=== PATIENT | male | born 1980 | race Caucasian/White ===

== ENCOUNTER → 2017-11-12 11:15 | Outpatient (CLI) | payer MEDICAID, SELFPAY ==
[2017-11-12 12:20] LABS: Basophils # 0.1 K/mm3 (0-0.2); Basophils % 1.2 % (0.1-2.0); Eosinophils # 0.7 K/mm3 (0.0-0.4); Eosinophils % 10.1 % (0.1-12.0); Lymphocytes # 1.9 K/mm3 (0.7-4.5); Lymphocytes % 27.8 K/mm3 (10-50); Mean Corpuscular HGB Conc 32.7 g/dL (31.8-35.4); Mean Corpuscular Hemoglobin 30.9 pg (27.0-31.2); Mean Corpuscular Volume 94.5 fl (80-94); Mean Platelet Volume 8.1 fl (7.4-10.4); Monocytes # 0.5 K/mm3 (0.1-1.0); Monocytes % 7.1 % (1.7-9.3); Neutrophils # 3.7 K/mm3 (1.8-7.8); Neutrophils % 53.7 % (37.0-80.0); Platelet Count 333 K/mm3 (142-424); Red Blood Count 4.55 M/mm3 (4.60-6.20); Red Cell Distribution Width 12.5 % (11.5-17.5); White Blood Count 6.9 K/mm3 (4.8-10.8)
[2017-11-12 13:17] LABS: Alanine Aminotransferase 23 U/L (12-78); Albumin Level 4.8 gm/dL (3.4-5.0); Albumin/Globulin Ratio 1.5 (1.1-1.8); Alkaline Phosphatase 71 U/L (46-116); Anion Gap 12.1 mEq/L (5-15); Aspartate Amino Transferase 13 U/L (15-37); Bilirubin,Total 0.3 mg/dL (0.2-1.0); Blood Urea Nitrogen 17 mg/dL (7-18); Calcium 9.1 mg/dL (8.5-10.1); Carbon Dioxide 29 mmol/L (21.0-32.0); Chloride 102 mmol/L (98-107); Chol/HDL Ratio 3.7 (1-3.5); Cholesterol 195 mg/dL (140-200); Creatinine,Serum 0.73 mg/dL (0.70-1.30); Estimated Glomerular Filt Rate 121 ml/min (>60); Free Thyroxine Index 2.9 ug/dL (5.93-13.13); GFR (African American) 146 ML/MIN (>60); Globulin 3.3 gm/dl (1.3-3.2); Glucose 101 mg/dL (74-106); HDL Cholesterol 53 mg/dL (27-67); LDL Cholesterol 118 mg/dL (0-130); Potassium 5.1 mmoL/L (3.5-5.1); Sodium 138 mmol/L (136-145); T4 (Thyroxine) 9.5 ug/dl (4.7-13.3); Thyroid Stimulating Hormone 0.92 uIU/ml (0.358-3.740); Total Protein,Serum 8.1 gm/dL (6.4-8.2); Triglycerides 118 mg/dL (30-200); Triiodothryronine (T3) Uptake 31 % (31-39); VLDL Cholesterol 24 mg/dL (0-40)
[2017-11-12 13:48] LABS: Hemoglobin A1C 5.1 % (0.0-7.0)
[2017-11-14 06:37] LABS: Vitamin B12 305 pg/mL (232-1245)
== END ==
PROVIDERS: PCP Nurse Practitioner Family; Visit Provider Nurse Practitioner Family
DX: R20.2 Paresthesia of skin (principal); R63.1 Polydipsia; I10 Essential (primary) hypertension; E01.0 Iodine-deficiency related diffuse (endemic) goiter
CPT/HCPCS: 36415; 80053; 80061; 82607; 83036; 84436; 84443; 84479; 85025

== ENCOUNTER → 2019-01-10 13:47 | Outpatient (CLI) | payer MEDICAID, SELFPAY | PROVIDERS: PCP Nurse Practitioner Family; Visit Provider Nurse Practitioner Family | DX: R06.02 Shortness of breath (principal); R42 Dizziness and giddiness | CPT/HCPCS: 93306 ==

== ENCOUNTER → 2019-11-14 14:59 | Outpatient (CLI) | payer OTHER, SELFPAY ==
[2019-11-14 15:42] LABS: Basophils # 0.1 K/mm3 (0-0.2); Eosinophils # 0.6 K/mm3 (0.0-0.4); Eosinophils % 6.1 % (0.1-12.0); Hematocrit 49.2 % (42.0-52.0); Hemoglobin 16.4 g/dL (14.1-18.0); Lymphocytes % 20.7 % (10-50); Mean Corpuscular HGB Conc 33.4 g/dL (31.8-35.4); Mean Corpuscular Hemoglobin 32.3 pg (27.0-31.2); Mean Corpuscular Volume 96.6 fl (80-94); Mean Platelet Volume 8.8 fl (7.4-10.4); Monocytes # 0.6 K/mm3 (0.1-1.0); Monocytes % 6.5 % (1.7-9.3); Neutrophils # 6.4 K/mm3 (1.8-7.8); Neutrophils % 65.6 % (37.0-80.0); Platelet Count 357 K/mm3 (142-424); Red Blood Count 5.09 M/mm3 (4.60-6.20); Red Cell Distribution Width 12.6 % (11.5-17.5); White Blood Count 9.8 K/mm3 (4.8-10.8)
[2019-11-14 15:47] LABS: INR 0.93 (0.9-1.1); Prothrombin Time 9.7 seconds (9.4-11.8)
[2019-11-14 17:51] LABS: Chloride 99 mmol/L (98-107)
[2019-11-14 17:52] LABS: Potassium 5.4 mmoL/L (3.5-5.1); Sodium 136 mmol/L (136-145)
[2019-11-14 17:54] LABS: Alanine Aminotransferase 132 U/L (12-78); Alkaline Phosphatase 79 U/L (38-126); Anion Gap 18.4 mEq/L (5-15); Aspartate Amino Transferase 95 U/L (17-59); Bilirubin,Total 0.7 mg/dl (0.2-1.3); Blood Urea Nitrogen 13 mg/dl (9-20); Carbon Dioxide 24 mmol/L (22.0-30.0); Estimated Glomerular Filt Rate 108 ml/min (>60); GFR (African American) 130 ML/MIN (>60)
[2019-11-14 17:55] LABS: Albumin Level 5.2 g/dl (3.5-5.0); Albumin/Globulin Ratio 1.6 (1.1-1.8); Calcium 10.7 mg/dl (8.4-10.2); Globulin 3.3 g/dL (1.3-3.2); Glucose 92 mg/dl (74-100); Total Protein,Serum 8.5 g/dl (6.3-8.2)
[2019-11-16 18:13] LABS: Hep A Ab, IgM Negative (Negative); Hepatitis B Core Antibody IgM Negative (Negative); Hepatitis B Surface Antigen Negative (Negative)
[2019-11-16 22:07] LABS: Hepatitis C Antibody >11.0 s/co ratio (0.0-0.9)
== END ==
PROVIDERS: Visit Provider Surgery
DX: R10.9 Unspecified abdominal pain (principal); K80.20 Calculus of gallbladder without cholecystitis without obstruction
CPT/HCPCS: 36415; 80053; 80074; 85025; 85610

== ENCOUNTER → 2020-04-12 11:11 | Outpatient (CLI) | payer OTHER, SELFPAY ==
[2020-04-12 11:17] LABS: Adenovirus,PCR Not Detected (NotDetected); Bordetella Pertussis Not Detected (NotDetected); Chlamydophila Pneumoniae, PCR Not Detected (NotDetected); Coronavirus 229E Not Detected (NotDetected); Coronavirus NL63 Not Detected (NotDetected); Coronavirus OC43 Not Detected (NotDetected); Coronovirus HKU1,PCR Not Detected (NotDetected); Human Metapneumovirus Not Detected (NotDetected); Influenza A, PCR Not Detected (NotDetected); Influenza AH1, 2009 Not Detected (NotDetected); Influenza AH1, PCR Not Detected (NotDetected); Influenza AH3,PCR Not Detected (NotDetected); Influenza B, PCR Not Detected (NotDetected); Mycoplasma Pneumoniae, PCR Not Detected (NotDetected); Parainfluenza 1, PCR Not Detected (NotDetected); Parainfluenza 2, PCR Not Detected (NotDetected); Parainfluenza 3, PCR Not Detected (NotDetected); Parainfluenza 4, PCR Not Detected (NotDetected); Respiratory Syncytial Virus Not Detected (NotDetected); Rhinovirus/Enterovirus Not Detected (NotDetected)
--- NOTE | 2020-04-12 11:36 | XR_ITS ---
PROCEDURE: XR CHEST 2V CLINICAL HISTORY: ACUTE URI COMPARISON: CXR CHEST(2 VIEWS-NOT PORTABLE) from 09/24/2016 CXR2V XR chest 2V from 09/04/2018 FINDINGS: The cardiomediastinal silhouette and pulmonary vascularity are within normal limits. The lungs are clear without infiltrates, suspicious nodules, or pleural effusions. Calcified granuloma is present in the lingula. No acute bony findings. IMPRESSION: No change with no acute finding Dictated by: Francisco Alexis MD 04/12/2020 12:03 Electronically signed by Francisco Alexis MD in [facility] 04/12/2020 12:03
[2020-04-12 11:40] LABS: Basophils # 0.1 K/mm3 (0-0.2); Basophils % 0.6 % (0.1-2.0); Eosinophils # 0.6 K/mm3 (0.0-0.4); Eosinophils % 5.9 % (0.1-12.0); Hematocrit 45.6 % (42.0-52.0); Hemoglobin 15.7 g/dL (14.1-18.0); Lymphocytes # 2.9 K/mm3 (0.7-4.5); Lymphocytes % 26.5 % (10-50); Mean Corpuscular HGB Conc 34.3 g/dL (31.8-35.4); Mean Corpuscular Hemoglobin 32.8 pg (27.0-31.2); Mean Corpuscular Volume 95.5 fl (80-94); Mean Platelet Volume 8.1 fl (7.4-10.4); Monocytes # 0.7 K/mm3 (0.1-1.0); Monocytes % 5.9 % (1.7-9.3); Neutrophils # 6.7 K/mm3 (1.8-7.8); Platelet Count 274 K/mm3 (142-424); Red Blood Count 4.78 M/mm3 (4.60-6.20); Red Cell Distribution Width 13.5 % (11.5-17.5); White Blood Count 10.9 K/mm3 (4.8-10.8)
[2020-04-12 12:17] LABS: Chloride 103 mmol/L (98-107); Potassium 4.4 mmoL/L (3.5-5.1); Sodium 140 mmol/L (136-145)
[2020-04-12 12:20] LABS: Alanine Aminotransferase 53 U/L (12-78); Albumin Level 4.9 g/dl (3.5-5.0); Albumin/Globulin Ratio 1.6 (1.1-1.8); Alkaline Phosphatase 66 U/L (38-126); Anion Gap 15.4 mEq/L (5-15); Aspartate Amino Transferase 38 U/L (17-59); Bilirubin,Total 0.4 mg/dl (0.2-1.3); Blood Urea Nitrogen 13 mg/dl (9-20); Calcium 9.9 mg/dl (8.4-10.2); Carbon Dioxide 26 mmol/L (22.0-30.0); Estimated Glomerular Filt Rate 108 ml/min (>60); GFR (African American) 130 ML/MIN (>60); Glucose 123 mg/dl (74-100); Total Protein,Serum 7.9 g/dl (6.3-8.2)
[2020-04-13 15:22] LABS: Covid-19 Nasal PCR Sendout Lex NOT DETECTED
== END ==
PROVIDERS: Visit Provider Internal Medicine Adolescent Medicine
DX: Z20.828 Contact with and (suspected) exposure to other viral communicable diseases (principal); A08.39 Other viral enteritis; J06.9 Acute upper respiratory infection, unspecified
CPT/HCPCS: 36415; 71046; 80053; 85025; 87486; 87581; 87633; 87798; U0004

== ENCOUNTER → 2020-06-02 12:45 | Outpatient (CLI) | payer OTHER, SELFPAY ==
--- NOTE | 2020-06-02 12:58 | XR_ITS ---
PROCEDURE: XR FINGER LT MIN 2V CLINICAL INDICATION: CELLULITIS OF LT THUMB COMPARISON: No exams were available for comparison FINDINGS: There is soft tissue swelling dorsally at the interphalangeal joint of the thumb. No radiopaque foreign body, soft tissue gas, or adjacent bony erosive process. The joint spaces are well-preserved. No significant degenerative/arthritic changes. No erosive changes evident. Other findings:None. IMPRESSION: Soft tissue swelling at the interphalangeal joint of the thumb dorsally otherwise negative Dictated by: Francisco Alexis MD 06/02/2020 17:39 Francisco Alexis MD in [facility] 06/02/2020 17:39
== END ==
PROVIDERS: PCP Internal Medicine Adolescent Medicine; Visit Provider Internal Medicine Adolescent Medicine
DX: L03.012 Cellulitis of left finger (principal)
CPT/HCPCS: 73140

== ENCOUNTER → 2021-02-16 09:36 | Outpatient (CLI) | payer OTHER, SELFPAY ==
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
== END ==
PROVIDERS: PCP Internal Medicine Adolescent Medicine; Visit Provider Nurse Practitioner Family
DX: R10.32 Left lower quadrant pain (principal); N50.82 Scrotal pain
CPT/HCPCS: 74176

== ENCOUNTER → 2021-05-09 13:03 | Outpatient (CLI) | payer OTHER, SELFPAY ==
[2021-05-09 13:46] LABS: Basophils # 0.2 K/mm3 (0-0.2); Basophils % 1.7 % (0.1-2.0); Eosinophils # 0.5 K/mm3 (0.0-0.4); Eosinophils % 5.3 % (0.1-12.0); Hematocrit 49.9 % (42.0-52.0); Hemoglobin 16.6 g/dL (14.1-18.0); Lymphocytes # 2.3 K/mm3 (0.7-4.5); Lymphocytes % 24.1 % (10-50); Mean Corpuscular HGB Conc 33.3 g/dL (31.8-35.4); Mean Corpuscular Hemoglobin 31.7 pg (27.0-31.2); Mean Corpuscular Volume 95.1 fl (80-94); Mean Platelet Volume 8.2 fl (7.4-10.4); Monocytes # 0.7 K/mm3 (0.1-1.0); Monocytes % 7.4 % (1.7-9.3); Neutrophils % 61.6 % (37.0-80.0); Platelet Count 249 K/mm3 (142-424); Red Blood Count 5.25 M/mm3 (4.60-6.20); Red Cell Distribution Width 13.8 % (11.5-17.5); White Blood Count 9.7 K/mm3 (4.8-10.8)
[2021-05-09 15:44] LABS: Chloride 102 mmol/L (98-107)
[2021-05-09 15:45] LABS: Potassium 4.8 mmoL/L (3.5-5.1); Sodium 139 mmol/L (136-145)
[2021-05-09 15:47] LABS: Alanine Aminotransferase 108 U/L (12-78); Alkaline Phosphatase 90 U/L (38-126); Anion Gap 17.8 mEq/L (5-15); Aspartate Amino Transferase 76 U/L (17-59); Bilirubin,Total 0.5 mg/dl (0.2-1.3); Blood Urea Nitrogen 14 mg/dl (9-20); Carbon Dioxide 24 mmol/L (22.0-30.0); Estimated Glomerular Filt Rate 93 ml/min (>60); GFR (African American) 113 ML/MIN (>60)
[2021-05-09 15:48] LABS: Albumin Level 5.1 g/dl (3.5-5.0); Albumin/Globulin Ratio 1.5 (1.1-1.8); Calcium 9.7 mg/dl (8.4-10.2); Globulin 3.3 g/dL (1.3-3.2); Glucose 121 mg/dl (74-100); HDL Cholesterol 49 mg/dl (40-60); Total Protein,Serum 8.4 g/dl (6.3-8.2)
[2021-05-09 15:56] LABS: Chol/HDL Ratio 7.4 (1-3.5); Cholesterol 364 mg/dl (140-200); Triglycerides 830 mg/dl (30-150)
[2021-05-09 15:59] LABS: Direct LDL Cholesterol 187.02 mg/dL (100-129)
[2021-05-09 16:07] LABS: Troponin I < 0.01 ng/ml (0.00-0.034)
[2021-05-09 16:19] LABS: Thyroid Stimulating Hormone 0.74 uIU/mL (0.465-4.68)
[2021-05-09 17:06] LABS: Lipase 108 U/L (23-300)
== END ==
PROVIDERS: Visit Provider Internal Medicine Adolescent Medicine
DX: I10 Essential (primary) hypertension (principal); Z79.899 Other long term (current) drug therapy
CPT/HCPCS: 36415; 80053; 80061; 83690; 84443; 84484; 85025

== ENCOUNTER 2022-10-17 16:29 | Emergency (ER) | payer OTHER, SELFPAY ==
[2022-10-17 16:31] VITALS: BP 170/120; PULSE 80; RESP 20; TEMP 36.7; O2SAT 98; BMI 29.9
--- NOTE | 2022-10-17 16:45 | PC.NURSE ---
Consulting [facility]
--- NOTE | 2022-10-17 17:01 | XR_ITS ---
PROCEDURE INFORMATION: Exam: XR Chest Exam date and time: 10/17/2022 5:26 PM Age: 41 years old Clinical indication: Other: Inhalation injury TECHNIQUE: Imaging protocol: Radiologic exam of the chest. Views: 1 view. COMPARISON: DX XR CHEST 2V 04/12/2020 11:43 AM FINDINGS: Lungs: Unremarkable. No consolidation. Pleural spaces: Unremarkable. No pleural effusion. No pneumothorax. Heart/Mediastinum: Unremarkable. No cardiomegaly. Bones/joints: Unremarkable. IMPRESSION: No acute findings.
[2022-10-17 17:02] VITALS: BP 150/91; PULSE 87; O2SAT 98
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
--- NOTE | 2022-10-17 17:28 | PC.NURSE ---
ECTOR BUSH speaking with [facility]
[2022-10-17 17:30] VITALS: BP 139/76; PULSE 89; O2SAT 99
--- NOTE | 2022-10-17 17:31 | PC.NURSE ---
ECTOR BUSH at to update pt of POC
[2022-10-17 18:21] VITALS: BP 136/70; PULSE 68; RESP 18; TEMP 36.7; O2SAT 97
== END 2022-10-17 18:25 | disposition home or self-care (01) ==
PROVIDERS: Emergency Provider Student in an Organized Health Care Education/Training Program; PCP Nurse Practitioner Family
DX: T23.272A Burn of second degree of left wrist, initial encounter (principal); T20.26XA Burn of second degree of forehead and cheek, initial encounter; T20.211A Burn of second degree of right ear [any part, except ear drum], initial encounter; X01.1XXA Exposure to smoke in uncontrolled fire, not in building or structure, initial encounter; F17.210 Nicotine dependence, cigarettes, uncomplicated; T31.0 Burns involving less than 10% of body surface
CPT/HCPCS: 71045; 99285

== ENCOUNTER 2022-10-21 11:26 | Outpatient (CLI) | payer OTHER, SELFPAY ==
[2022-10-21 11:33] VITALS: BMI 29.8
--- NOTE | 2022-10-21 11:48 | PC.NURSE ---
30MG toradol IM administered to left deltoid
== END 2022-10-21 11:48 | disposition home or self-care (01) ==
LOC: INF 11:26
PROVIDERS: PCP Nurse Practitioner Family; Visit Provider Nurse Practitioner Family
DX: T20.20XA Burn of second degree of head, face, and neck, unspecified site, initial encounter (principal); T23.209A Burn of second degree of unspecified hand, unspecified site, initial encounter
CPT/HCPCS: 96372

== ENCOUNTER → 2023-06-21 23:06 | Outpatient (CLI) | payer OTHER, SELFPAY ==
[2023-06-21 18:57] LABS: Amphetamine/Metha Screen,Urine Negative ng/ml (<1000); Benzodiazepines Screen,Urine Positive ng/ml (<200)
[2023-06-21 18:58] LABS: Barbiturates Screen,Urine Negative ng/ml (<200); Methadone Screen,Urine Negative ng/ml (<300)
[2023-06-21 18:59] LABS: Cannabinoid Screen,Urine Negative ng/ml (<50)
[2023-06-21 19:00] LABS: Cocaine Screen,Urine Negative ng/ml (<300); Opiate Screen,Urine Negative ng/ml (<300)
[2023-06-21 19:01] LABS: Phencyclidine Screen,Urine Negative ng/ml (<25)
== END ==
PROVIDERS: PCP Family Medicine; Visit Provider Family Medicine
DX: F41.9 Anxiety disorder, unspecified (principal)
CPT/HCPCS: 80305

== ENCOUNTER → 2023-07-19 22:23 | Outpatient (CLI) | payer OTHER, SELFPAY ==
[2023-07-19 20:23] LABS: Chol/HDL Ratio 3.1 (1-3.5); Cholesterol 141 mg/dl (140-200); HDL Cholesterol 46 mg/dl (40-60); Triglycerides 96 mg/dl (30-150); VLDL Cholesterol 19 mg/dL (0-40)
[2023-07-19 20:33] LABS: Direct LDL Cholesterol 73.66 mg/dL (100-129)
== END ==
PROVIDERS: PCP Family Medicine; Visit Provider Family Medicine
DX: E78.00 Pure hypercholesterolemia, unspecified (principal)
CPT/HCPCS: 80061

== ENCOUNTER 2023-11-02 22:02 | Outpatient (CLI) | payer OTHER, SELFPAY ==
[2023-11-02 20:36] LABS: Amphetamine/Metha Screen,Urine Negative ng/ml (<1000)
[2023-11-02 20:37] LABS: Barbiturates Screen,Urine Negative ng/ml (<200)
[2023-11-02 20:38] LABS: Benzodiazepines Screen,Urine Positive ng/ml (<200)
[2023-11-02 20:39] LABS: Cocaine Screen,Urine Negative ng/ml (<300)
[2023-11-02 20:40] LABS: Opiate Screen,Urine Negative ng/ml (<300)
[2023-11-02 20:41] LABS: Phencyclidine Screen,Urine Negative ng/ml (<25)
[2023-11-02 20:46] LABS: Methadone Screen,Urine Negative ng/ml (<300)
[2023-11-02 22:13] LABS: Cannabinoid Screen,Urine Negative ng/ml (<50)
== END 2023-11-02 23:59 ==
LOC: LAB.DROPOF 22:02
PROVIDERS: PCP Family Medicine; Visit Provider Family Medicine
DX: Z79.899 Other long term (current) drug therapy (principal)
CPT/HCPCS: 80307

== ENCOUNTER 2024-08-20 11:00 | Outpatient (CLI) | payer OTHER, SELFPAY ==
[2024-08-20 18:54] LABS: Adenovirus,PCR Not Detected (NotDetected); Bordetella Pertussis Not Detected (NotDetected); Chlamydophila Pneumoniae, PCR Not Detected (NotDetected); Coronavirus 19, PCR Not Detected (NotDetected); Coronavirus 229E Not Detected (NotDetected); Coronavirus NL63 Not Detected (NotDetected); Coronavirus OC43 Not Detected (NotDetected); Coronovirus HKU1,PCR Not Detected (NotDetected); Human Metapneumovirus Not Detected (NotDetected); Influenza A, PCR Not Detected (NotDetected); Influenza AH1, 2009 Not Detected (NotDetected); Influenza AH1, PCR Not Detected (NotDetected); Influenza AH3,PCR Not Detected (NotDetected); Influenza B, PCR Not Detected (NotDetected); Mycoplasma Pneumoniae, PCR Not Detected (NotDetected); Parainfluenza 1, PCR Not Detected (NotDetected); Parainfluenza 2, PCR Not Detected (NotDetected); Parainfluenza 3, PCR Not Detected (NotDetected); Parainfluenza 4, PCR Not Detected (NotDetected); Respiratory Syncytial Virus Not Detected (NotDetected); Rhinovirus/Enterovirus Not Detected (NotDetected)
== END 2024-08-20 23:59 | disposition home or self-care (01) ==
LOC: LAB.DROPOF 08-22 09:18
PROVIDERS: PCP Nurse Practitioner; Visit Provider Nurse Practitioner
DX: J06.9 Acute upper respiratory infection, unspecified (principal); Z72.0 Tobacco use
CPT/HCPCS: 87633

== ENCOUNTER 2025-08-10 11:32 | Emergency (ER) | payer BC, SELFPAY ==
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
--- NOTE | 2025-08-10 11:44 | XR_ITS ---
PROCEDURE INFORMATION: Exam: XR Right Elbow Exam date and time: 08/10/2025 12:08 PM Age: 44 years old Clinical indication: Pain; Elbow; Right; Additional info: Right elbow pain/swelling after injury TECHNIQUE: Imaging protocol: Radiologic exam of the right elbow. Views: 3 or more views. Total images: 2 COMPARISON: CR XR ELBOW RT MIN 3V 08/10/2025 12:08 PM FINDINGS: Bones/joints: No evidence of acute fracture or dislocation. Soft tissues: Diffuse soft tissue swelling. IMPRESSION: 1. Diffuse soft tissue swelling. 2. No evidence of acute fracture or dislocation.
--- NOTE | 2025-08-10 11:44 | XR_ITS ---
PROCEDURE INFORMATION: Exam: XR Right Humerus Exam date and time: 08/10/2025 12:08 PM Age: 44 years old Clinical indication: Pain; Upper arm; Right; Additional info: Right arm pain and swelling TECHNIQUE: Imaging protocol: Radiologic exam of the right humerus. Views: 2 or more views. Total images: 2 COMPARISON: CR XR HUMERUS RT 08/10/2025 12:08 PM FINDINGS: Bones/joints: No evidence of acute fracture or dislocation. Soft tissues: Diffuse soft tissue swelling. IMPRESSION: 1. Diffuse soft tissue swelling. 2. No evidence of acute fracture or dislocation.
[2025-08-10 11:45] VITALS: BP 154/102; PULSE 90; RESP 13; TEMP 36.4; O2SAT 100; BMI 27.2
--- NOTE | 2025-08-10 11:45 | XR_ITS ---
PROCEDURE INFORMATION: Exam: XR Right Forearm Exam date and time: 08/10/2025 12:08 PM Age: 44 years old Clinical indication: Pain; Lower or forearm; Right; Additional info: Right forearm/elbow pain TECHNIQUE: Imaging protocol: Radiologic exam of the right forearm. Views: 2 views. Total images: 2 COMPARISON: CR XR FOREARM RT 2V 08/10/2025 12:08 PM FINDINGS: Bones/joints: No evidence of acute fracture or dislocation. Soft tissues: Soft tissues are within normal limits. IMPRESSION: No evidence of acute fracture or dislocation.
[2025-08-10 12:01] VITALS: BP 119/76; PULSE 82; O2SAT 99
[2025-08-10] MEDS: ACETAMINOPHEN 500MG TAB 500 MG PO (12:03)
[2025-08-10] MEDS: IBUPROFEN 600 MG TABLET PO (12:03)
[2025-08-10 12:30] VITALS: BP 117/71; PULSE 70; O2SAT 95
[2025-08-10 13:00] VITALS: BP 111/67; PULSE 60; O2SAT 98
[2025-08-10 13:19] VITALS: BP 132/91; PULSE 72; RESP 16; TEMP 36.4; O2SAT 100
[2025-08-10 13:20] VITALS: BP 132/91; PULSE 73; O2SAT 99
== END 2025-08-10 13:28 | disposition home or self-care (01) ==
PROVIDERS: Emergency Provider Student in an Organized Health Care Education/Training Program; PCP Nurse Practitioner Psychiatric/Mental Health
DX: M25.521 Pain in right elbow (principal); I10 Essential (primary) hypertension; E78.00 Pure hypercholesterolemia, unspecified
CPT/HCPCS: 73060; 73080; 73090; 99284